=== PATIENT | female | born 1955 | race Caucasian/White ===

== ENCOUNTER 2018-06-29 17:02 | Outpatient (REF) | payer BC, SELFPAY ==
[2018-06-29 21:03] LABS: HCT 44.8 % (36.0-46.0); HGB 15.1 g/dL (12.0-15.5)
[2018-06-29 21:09] LABS: Anion Gap 5.8 mmol/L (3-11); BUN 14 mg/dL (7-18); CO2 30.2 mmol/L (21.0-32.0); CREATININE 0.81 mg/dL (0.55-1.02); Calcium 9.3 mg/dL (8.5-10.1); Chloride 104 mmol/L (98-107); Glucose 91 mg/dL (70-100); Potassium 3.9 mmol/L (3.5-5.1); Sodium 140 mmol/L (136-145)
[2018-06-29 21:55] LABS: Hemoglobin A1C 6.7 % (4.5-6.2)
== END 2018-06-29 17:22 ==
LOC: NCHCN 17:02
PROVIDERS: PCP Family Medicine; Visit Provider Registered Nurse
DX: E11.9 Type 2 diabetes mellitus without complications (principal); D64.9 Anemia, unspecified
CPT/HCPCS: 80048; 83036; 85014; 85018

== ENCOUNTER 2019-03-30 10:04 | Inpatient (IN) | payer OTHER, SELFPAY ==
[2019-03-30] VITALS (37 sets, daily range): BP systolic 84–162; BP diastolic 33–120; PULSE 80–97; RESP 16–28; TEMP 38.3–38.4; O2SAT 84–100
--- NOTE | 2019-03-30 10:44 | ED.GENADUL_ITS ---
Discharge Plan Disposition Patient Disposition: [facility] INPATIENT Condition: Serious Discharge Details Chief Complaint: Fever Clinical Impression: Enteritis, Acute hypokalemia, Hypocalcemia, Acute hyponatremia, Leukopenia Admit Date/Time: 03/30/19 13:49 Admit Provider: Jersey Morin Attending Provider: Jersey Morin Primary Care Provider: SOMMER WYNNE ED Provider: Shiraz Leung Discharge Data Discharge Date/Time-TO BE ENTERED AT DEPARTURE: 03/30/19 15:16 Medical Decision Making 10:45 --64-year-old female with history of rectal cancer, recently completed first course of chemotherapy, currently on radiation therapy, here with generalized weakness, fatigue, recently feverish with intermittent cough and also epigastric abdominal pain and tenderness. Consider metastatic disease versus other acute surgical pathology. Plan to obtain CT of the abdomen pelvis. Given her recent cough and fever, consider pneumonia versus metastatic lesions to her lungs. I will obtain CT of the chest as well. Patient was apparently neutropenic at the [facility] center recently. Plan to repeat labs including CBC. Consider electrolyte abnormalities. --Labs reviewed and hypokalemia noted. Hypocalcemia noted. Hyponatremia noted. Will give potassium 20 meq IV. ECG was reviewed and interpreted by me: Sinus rhythm 83 bpm, normal axis, nondiagnostic. CT is pending. -- CT interpreted by radiology: enteritis. Given fever, leukopenia, and mild elevated lactate, will cover with antibiotic. Initiated Levaquin IV. Spoke with Dr. Morin, discussed ED presentation and course, who will admit. HPI General Mode of arrival: ambulatory . Date/Time Provider Initiated Documentation: 03/30/19 10:18 . Limitations to Documentation: no limitations . Information obtained by: patient and family . HPI Narrative: 64-year-old female with history of rectal cancer, recently completed first course of chemotherapy, currently on radiation therapy, here with chief complaint of weakness. Patient notes increased generalized weakness over the past few days. Weakness is now severe. Nonfocal. No modifiers. She is been going to [facility] center receiving IV fluids over the past couple days without relief. She also notes decreased appetite and decreased oral intake. notes that he thinks she is felt feverish. She also notes some mild intermittent productive cough over the past couple days. She also states that she has upper abdominal discomfort over the past 1 day. Pain is localized to her epigastric and moderate. Related Data Home Medications Medication Instructions Recorded Confirmed acetaminophen [Acetaminophen Extra See Rx Instructions .ROUTE 03/30/19 03/30/19 Strength] .COMPLEX PRN aspirin [Aspirin Childrens] 81 mg PO DAILY 03/30/19 03/30/19 capecitabine 1,300 mg PO BID 03/30/19 03/30/19 docusate sodium 100 mg PO BID 03/30/19 03/30/19 famotidine 20 mg PO DAILY 03/30/19 03/30/19 fluconazole 100 mg PO PRN PRN 03/30/19 03/30/19 hydromorphone See Rx Instructions .ROUTE 03/30/19 03/30/19 .COMPLEX PRN loperamide 2 mg PO 4-6XD PRN 03/30/19 03/30/19 lorazepam See Rx Instructions .ROUTE 03/30/19 03/30/19 .COMPLEX PRN losartan 25 mg PO DAILY 03/30/19 03/30/19 morphine 15 mg PO BID 03/30/19 03/30/19 morphine See Rx Instructions .ROUTE 03/30/19 03/30/19 .COMPLEX PRN nitroglycerin [Nitrostat] See Rx Instructions .ROUTE 03/30/19 03/30/19 .COMPLEX PRN oxybutynin chloride [Ditropan XL] 5 mg PO DAILY 03/30/19 03/30/19 polyethylene glycol 3350 [Miralax] 17 g PO DAILY 03/30/19 03/30/19 ropinirole [Requip XL] See Rx Instructions .ROUTE .COMPLEX 03/30/19 03/30/19 rosuvastatin [Crestor] 40 mg PO DAILY 03/30/19 03/30/19 ticagrelor [Brilinta] 60 mg PO BID 03/30/19 03/30/19 tramadol See Rx Instructions .ROUTE 03/30/19 03/30/19 .COMPLEX PRN Allergies Allergy/AdvReac Type Severity Reaction Status Date / Time Penicillins Allergy Unverified 03/30/19 10:20 General Stated Complaint: Fever SUJATA: 2 Review of Systems Review of Systems ROS Unobtainable: All systems reviewed & are unremarkable except as noted in HPI and below ENT Ears, Nose, Mouth, and Throat: Reports dizziness Cardiovascular Cardiovascular: Denies syncope Gastrointestinal Gastrointestinal: Reports as per HPI Neurologic Neurologic: Reports as per HPI, Reports dizziness and Denies syncope [facility] Medical History Anal cancer (Acute) CAD (coronary artery disease) (Chronic) Dyslipidemia (Acute) Restless leg syndrome (Acute) Exam Const General: cooperative and no acute distress HENMT Head: normocephalic and atraumatic Mouth: mucous membranes dry Throat: posterior oropharynx normal Eyes Conjunctivae: normal conjunctivae Sclera: normal sclerae EOM: EOM intact bilaterally Neck Neck: trachea midline and supple Resp Auscultation: clear to auscultation bilaterally, no rales, no rhonchi and no wheezes Cardio Jugular venous pressure: no JVD Rate: regular rate and not tachycardic Rhythm: regular rhythm GI Palpation: soft, not firm, no guarding, no masses, not rigid and tender in the epigastrum Auscultation: normal bowel sounds Skin General skin exam: no rashes or lesions noted Neuro General: oriented x3, tone normal and other (Asleep, easily arousable, fatigued) Cranial Nerves: CN's II-XI intact bilaterally Speech: speech normal Motor: other (4 out of 5 strength throughout) Sensory Exam: no sensory deficits noted Extrem General: no edema Psych Appearance: grossly normal Course Vital Signs Vital signs: Vital Signs Temperature 38.3 C H 03/30/19 10:15 Pulse 85 03/30/19 10:15 Respiratory Rate 28 H 03/30/19 10:15 Blood Pressure 107/46 L 03/30/19 10:15 Pulse Oximetry 97 03/30/19 10:15 Temperature 38.3 C H 03/30/19 10:15 Temperature Source Skin 03/30/19 10:15 Pulse 85 03/30/19 10:15 Respiratory Rate 28 H 03/30/19 10:15 Respiratory Effort 03/30/19 10:15 Blood Pressure 107/46 L 03/30/19 10:15 Blood Pressure Position Supine 03/30/19 10:15 Pulse Oximetry 97 03/30/19 10:15 Oxygen Delivery Method Room Air 03/30/19 10:15 Oxygen Flow Rate 0 03/30/19 10:15 Pain Level 8 03/30/19 10:15 Lab/Test Results Lab/Test Results: 03/30/19 10:38 Blood Blood Culture - Pending 03/30/19 10:38 Blood Blood Culture - Pending
[2019-03-30] MEDS: Normal Saline 1,000 ML 1000 ML IV (11:00)
[2019-03-30 11:03] LABS: Lactate 1.7 mmol/L (0.6-1.4)
[2019-03-30] MEDS: FAMOTIDINE 20 MG/50 ML BAG 200 MG IVPB (11:05)
[2019-03-30 11:14] LABS: HGB 11.3 g/dL (12.0-15.5); Mean Corp. HGB Concentration 35.3 g/dL (32.0-36.0); Mean Corpuscular Volume 90.7 fL (80-95); Mean Platelet Volume 8.9 fL (8.0-11.0); RBC 3.53 m/cumm (4.00-5.20); RBC Distribution Width 16.5 % (11.7-14.6); White Blood Cell Count 2.48 k/cumm (4.4-10.8)
[2019-03-30 11:25] LABS: ALT 37 U/L (14-59); AST 31 U/L (15-37); Albumin 2.3 g/dL (3.4-5.0); Alkaline Phosphatase 64 U/L (46-116); Anion Gap 10.2 mmol/L (3-11); BUN 10 mg/dL (7-18); Bilirubin, Total 0.7 mg/dL (0.2-1.0); CO2 24.8 mmol/L (21.0-32.0); CREATININE 0.95 mg/dL (0.55-1.02); Calcium 7.1 mg/dL (8.5-10.1); Chloride 92 mmol/L (98-107); Estimated GFR 59.04 (mL/min/1.73m2); Glucose 214 mg/dL (70-100); Lipase 27 U/L (73-393); Sodium 127 mmol/L (136-145); Total Protein 5.4 g/dL (6.4-8.2); Troponin I < 0.05 ng/mL (0.00-0.06)
[2019-03-30] MEDS: Normal Saline Flush 10 ML SYR IVP ×3 (11:30→19:51)
[2019-03-30 11:35] LABS: Platelet Count 98 x1000/uL (130-400)
[2019-03-30 11:36] LABS: Absolute Lymphocyte Count 0.02 k/cumm (1.2-3.4); Absolute Monocyte Count 0.74 k/cumm (0.11-0.7); Absolute Neutrophil Count 1.56 k/cumm (1.2-6.7)
[2019-03-30 11:37] LABS: Diff Comment Manual Differential; RBC Morphology Normal
[2019-03-30] MEDS: Normal Saline 1,000 ML 150 ML IV (11:50)
[2019-03-30] MEDS: Omnipaque 350 MG/ML 100 ML BTL IJ (12:48)
--- NOTE | 2019-03-30 12:52 | DI.CT_ITS ---
EXAM: CT CHEST/ABD/PEL W CLINICAL HISTORY: cough, neutropenia, epigastric abd pain and tender. TECHNIQUE: CT examination of the chest, abdomen and pelvis was performed utilizing biphasic hepatic imaging with intravenous infusion of 100 cc of Omnipaque 350. COMPARISON: [id number] from 01/26/2019 FINDINGS: The lungs are clear. No pleural effusion or pleural-based mass. No mediastinal or hilar adenopathy. N o pulmonary embolic disease or other major vascular abnormality of the chest. Tiny right lobe hepatic lesion at the dome of the liver consistent with cyst, unchanged from prior CT of 01/2019. No new hepatic lesion. No new splenic lesion. Pancreas is unremarkable. Prior cholecyst ectomy noted. No biliary dilatation. Abdominal aorta is of normal diameter. No major vascular abnorm ality seen. Presumed bilateral renal cysts again noted. Adrenals unremarkable in appearance. No sign ificant abdominal wall hernia seen. Previously noted external iliac enlarged lymph node markedly decr eased in size. Mild left inguinal lymph node prominence noted, nonspecific. There is a small quantity of free intraperitoneal fluid. There are multiple loops of small bowel with markedly thickened wall and there is moderate small bowel dilatation. Thickened wall of the rectosig moid also noted. Question slight wall thickening of cecum, the terminal ileum has a thickened wall. Proximal small bowel grossly unremarkable. No focal bony lesion identified in the chest, abdomen or pelvis. IMPRESSION: 1. Interval decrease in size of left external iliac/inguinal adenopathy since 01/26/2019. 2. No evidence of acute process in the thoracic region. 3. Marked focal small and large bowel wall thickening as described; findings would be consistent with enteritis of uncertain etiology, in a patient with a history of recent radiotherapy and chemotherapy , possible causes would include infectious process, radiation enteritis, or enteritis related to chem otherapeutic regimen.
[2019-03-30] MEDS: POTASSIUM CHLORIDE 20 MEQ/100 ML BAG 50 MEQ IVPB (13:24)
[2019-03-30 14:22] LABS: Lactate 1.6 mmol/L (0.6-1.4)
[2019-03-30 14:24] LABS: Troponin I < 0.05 ng/mL (0.00-0.06)
[2019-03-30 14:30] LABS: Sodium 129 mmol/L (136-145)
[2019-03-30] MEDS: Enoxaparin 40 MG/0.4 ML SYR SC (16:33)
[2019-03-30] MEDS: levoFLOXacin 750 MG/150 ML BAG 100 MG IVPB (16:34)
[2019-03-30] MEDS: Normal Saline 1,000 ML 75 ML IV (16:34)
[2019-03-30] MEDS: Potassium Chloride 20 MEQ TABCR 40 MEQ PO (16:39)
--- NOTE | 2019-03-30 18:12 | HPE_ITS ---
Date of service: 03/30/19 Time of Service: 18:12 Assessment and Plan Assessment and plan (1) Enteritis: Status: Acute Assessment and plan: Evidence of a marketed focal small and large bowel wall thickening, specifically noted to have multiple loops of small bowel that are markedly thickened with moderate dilatation -also with noted thickening of the rectosigmoid wall, potential slight wall thickening of the cecum, as well as terminal ileum. Patient has what appears to be an enteritis, with a etiology potentially on the basis of either infectious, radiation, or chemotherapy induced. Mrs. Jacquie Yeager also has evidence of fevers on presentation, making infectious etiology a real possibility. ?Check stool studies, including fecal pathogens, C. difficile screen, and fecal leukocytes. ?Continue supportive care with IV fluids, with careful monitoring of sodium and electrolytes as below. ?Given concurrent fevers may benefit from antibiotic therapy. Penicillin allergy noted?will initiate levofloxacin and metronidazole. Potential interaction between Flagyl and capecitabine noted, but with patient's chemotherapeutic agents currently on hold. ?Monitor symptoms carefully, with low threshold for specialty support such as surgery consult. Repeat a.m. lactate. (2) Hyponatremia: Status: Acute Assessment and plan: Very likely hypovolemic hyponatremia, currently improving with IV fluids. Will need to ensure that she does not rise in her sodium levels rapidly, and repeat sodium appears to be very gradual and appropriate increase. We will continue normal saline at a relatively low rate, and repeat a sodium level within a couple of hours to ensure appropriate rise. (3) Anal cancer: Status: Acute Assessment and plan: Currently following with [facility] oncology, Dr. Espino. On chemotherapy with mitomycin and capecitabine, which is currently on hold. Patient has had issues in the past apparently with low white blood counts, but is currently not neutropenic. Will hold fluconazole as patient is not neutropenic. She is also undergoing XRT which is approaching its final courses. She is due for her next dose this coming Tuesday, and as per Dr. Espino if she remains hospitalized would merit transfer as an inpatient to [facility] so that her care and radiation therapy are not delayed. (4) CAD (coronary artery disease): Status: Chronic Assessment and plan: Details of history are unknown, but per review of [facility] records appears to involve a STEMI in the past. For now continue patient's home regimen of daily aspirin and high potency statin therapy. Also on as needed nitroglycerin. Patient is also on daily ARB, but given relative hypotension and evidence of dehydration losartan will be held. (5) Dyslipidemia: Status: Acute Assessment and plan: Continue statin therapy. (6) Restless leg syndrome: Status: Acute Assessment and plan: Continue home regimen of ropinirole. (7) DVT prophylaxis: Status: Acute Assessment and plan: SC Lovenox. (8) Advanced directives, counseling/discussion: Status: Acute Assessment and plan: Full code. History of Present Illness History of Present Illness Chief Complaint: Abdominal pain Narrative: 64-year-old woman with past medical history significant for anal CA on chemo and XRT, being admitted from [facility] emergency department on 03/30 with a diagnosis of enteritis. Mrs. Jacquie Rodriguez has a past medical history significant for anal CA on chemotherapy with mitomycin and Capecitabin (currently on hold) and radiation therapy that is currently concluding. Her other history also includes CAD with a prior history of STEMI per review of [facility] records, RLS, and dyslipidemia. The patient has been feeling unwell recently, presented to her oncologist's off ice, Dr. Espino, with reported weakness, fatigue, and abdominal pain. She was sent to the ED for further evaluation and treatment. Work-up in the ED was significant for leukopenia without neutropenia, mild anemia and thrombocytopenia, hyponatremia with a sodium of 127, which is a new finding for the patient, along with hypokalemia and hypochloremia. Her lactate was minimally elevated at 1.7, with normal LFTs, lipase, troponin, and magnesium. In addition to her low white blood count she seems to have 27 bands on differential. Though her calcium is low, it corrects to low normal considering her low albumin. Given her abdominal pain a CT of the chest, abdomen, and pelvis was obtained that showed an interval decrease in size of inguinal adenopathy, and a marketed focal small and large bowel wall thickening consistent with an enteritis of uncertain etiology. She was also noted to be fe brile, and mildly hypotensive but non-tachycardic. She was referred for admission for further evaluation and treatment. Review of Systems Review of Systems ROS Unobtainable: All systems reviewed & are unremarkable except as noted in HPI and below PFSH Medical History Anal cancer (Acute) CAD (coronary artery disease) (Chronic) Dyslipidemia (Acute) Restless leg syndrome (Acute) Meds Home Medications and Allergies Home Medications Medication Instructions Recorded Confirmed Type acetaminophen [Acetaminophen Extra See Rx Instructions .ROUTE 03/30/19 03/30/19 History Strength] .COMPLEX PRN aspirin [Aspirin Childrens] 81 mg PO DAILY 03/30/19 03/30/19 History capecitabine 1,300 mg PO BID 03/30/19 03/30/19 History docusate sodium 100 mg PO BID 03/30/19 03/30/19 History famotidine 20 mg PO DAILY 03/30/19 03/30/19 History fluconazole 100 mg PO PRN PRN 03/30/19 03/30/19 History hydromorphone See Rx Instructions .ROUTE 03/30/19 03/30/19 History .COMPLEX PRN loperamide 2 mg PO 4-6XD PRN 03/30/19 03/30/19 History lorazepam See Rx Instructions .ROUTE 03/30/19 03/30/19 History .COMPLEX PRN losartan 25 mg PO DAILY 03/30/19 03/30/19 History morphine 15 mg PO BID 03/30/19 03/30/19 History morphine See Rx Instructions .ROUTE 03/30/19 03/30/19 History .COMPLEX PRN nitroglycerin [Nitrostat] See Rx Instructions .ROUTE 03/30/19 03/30/19 History .COMPLEX PRN oxybutynin chloride [Ditropan XL] 5 mg PO DAILY 03/30/19 03/30/19 History polyethylene glycol 3350 [Miralax] 17 g PO DAILY 03/30/19 03/30/19 History ropinirole [Requip XL] See Rx Instructions .ROUTE .COMPLEX 03/30/19 03/30/19 History rosuvastatin [Crestor] 40 mg PO DAILY 03/30/19 03/30/19 History ticagrelor [Brilinta] 60 mg PO BID 03/30/19 03/30/19 History tramadol See Rx Instructions .ROUTE 03/30/19 03/30/19 History .COMPLEX PRN Allergies Allergy/AdvReac Type Severity Reaction Status Date / Time Penicillins Allergy Unverified 03/30/19 10:20 Exam Narrative Exam Narrative: General: Patient appears uncomfortable and ill, but not toxic. Appears tired and somnolent but easily arousable, answers questions appropriately, and oriented x3 when answering questions. Neck: Supple CV: Regular, nontachycardic, S1S2, No rubs, murmurs, or gallops. Pulmonary: Clear to auscultation bilaterally, no crackles, wheezing, or rhonchi on limited anterior and lateral exam Abdomen: + Bowel Sounds, soft, nondistended, significant diffuse tenderness without rebound. Does not appear to be an acute abdomen at time of admission. Vascular: No lower extremity edema Psych: Normal mood and affect. Results Imaging Abdomen CT scan report/results: report reviewed CT scan - chest: report reviewed CT scan - pelvis: report reviewed Labs Result diagrams: 03/30/19 10:50 03/30/19 14:16 Labs: Laboratory Results - last 24 hr 03/30/19 03/30/19 03/30/19 10:50 10:50 10:50 WBC 2.48 L RBC 3.53 L Hgb 11.3 L Hct 32.0 L MCV 90.7 MCH 32.0 MCHC 35.3 RDW 16.5 H Plt Count 98 L MPV 8.9 Immature Gran % See Differential Neutrophils % 36.0 Band Neutrophils % 27.0 Lymphocytes % 1.0 Monocytes % 30.0 Eosinophils % 0.0 Basophils % 0.0 Metamyelocytes % 6.0 Absolute Neutrophils 1.56 Absolute Lymphocytes 0.02 L Absolute Monocytes 0.74 H Absolute Eosinophils 0.00 Absolute Basophils 0.00 Differential Comment Manual differential RBC Morphology Normal Sodium 127 L Potassium 3.0 L Chloride 92 L Carbon Dioxide 24.8 Anion Gap 10.2 BUN 10 Creatinine 0.95 Estimated GFR/1.73 m2 59.04 Glucose 214 H Lactate 1.7 H Calcium 7.1 L Magnesium 2.0 Total Bilirubin 0.7 AST 31 ALT 37 Alkaline Phosphatase 64 Troponin I < 0.05 Total Protein 5.4 L Albumin 2.3 L Lipase 27 L 03/30/19 03/30/19 03/30/19 13:40 14:16 14:16 WBC RBC Hgb Hct MCV MCH MCHC RDW Plt Count MPV Immature Gran % Neutrophils % Band Neutrophils % Lymphocytes % Monocytes % Eosinophils % Basophils % Metamyelocytes % Absolute Neutrophils Absolute Lymphocytes Absolute Monocytes Absolute Eosinophils Absolute Basophils Differential Comment RBC Morphology Sodium 129 L Potassium Chloride Carbon Dioxide Anion Gap BUN Creatinine Estimated GFR/1.73 m2 Glucose Lactate 1.6 H Calcium Magnesium Total Bilirubin AST ALT Alkaline Phosphatase Troponin I < 0.05 Total Protein Albumin Lipase Last Vital Signs Temp 38.4 C H 03/30/19 15:27 Pulse 82 03/30/19 15:27 Resp 21 03/30/19 15:27 BP 107/58 L 03/30/19 15:27 Pulse Ox 98 03/30/19 15:27
[2019-03-30] MEDS: Pantoprazole 40 MG VIAL IVP (19:26)
[2019-03-30] MEDS: metroNIDAZOLE 500 MG/100 ML BAG 100 MG IVPB (19:28)
[2019-03-30] MEDS: Docusate Sodium 100 MG CAP PO (19:28)
[2019-03-30] MEDS: Rosuvastatin 10 MG TAB 40 MG PO (19:48)
[2019-03-30] MEDS: HYDROmorphone 2 MG/ML VIAL 1 MG IVP (19:50)
[2019-03-30 20:28] LABS: Sodium 127 mmol/L (136-145)
[2019-03-30] MEDS: rOPINIRole 0.5 MG TAB 2 MG PO (21:53)
[2019-03-31] VITALS (8 sets, daily range): BP systolic 82–104; BP diastolic 36–58; PULSE 80–84; RESP 16–18; TEMP 37.4–38.7; O2SAT 95–98
[2019-03-31] MEDS: metroNIDAZOLE 500 MG/100 ML BAG 100 MG IVPB ×3 (03:21→19:30)
[2019-03-31] MEDS: Normal Saline 1,000 ML 75 ML IV (07:03)
[2019-03-31 07:34] LABS: Abs Immature Grans 0.02 k/cumm (0.0-0.09); Absolute Basophil Count 0.01 k/cumm (0.0-0.2); Absolute Lymphocyte Count 0.17 k/cumm (1.2-3.4); Absolute Monocyte Count 0.85 k/cumm (0.11-0.7); Absolute Neutrophil Count 2.07 k/cumm (1.2-6.7); Basophils % 0.3; HCT 31.1 % (36.0-46.0); HGB 10.9 g/dL (12.0-15.5); Immature Grans % 0.6; Lymphocytes % 5.4; Mean Corpuscular Hemoglobin 32.2 pg (27.0-33.0); Mean Corpuscular Volume 91.7 fL (80-95); Monocytes % 27.2; Neutrophils % 66.5; RBC 3.39 m/cumm (4.00-5.20); White Blood Cell Count 3.12 k/cumm (4.4-10.8)
[2019-03-31 08:22] LABS: BUN 7 mg/dL (7-18); CREATININE 0.71 mg/dL (0.55-1.02); Chloride 99 mmol/L (98-107); Glucose 152 mg/dL (70-100); Magnesium 1.9 mg/dL (1.8-2.4); Potassium 3.3 mmol/L (3.5-5.1); Sodium 130 mmol/L (136-145)
[2019-03-31 08:26] LABS: Diff Comment Diff Reviewed
[2019-03-31 08:27] LABS: Platelet Count 69 x1000/uL (130-400)
[2019-03-31] MEDS: Oxybutynin-CR 5 MG TABCR PO (08:36)
[2019-03-31] MEDS: Polyethylene Glycol 3350 17 GM PACKET PO (08:36)
[2019-03-31] MEDS: rOPINIRole 0.5 MG TAB 1 MG PO (08:36)
[2019-03-31] MEDS: Acetaminophen 325 MG TAB PO ×2 (08:37→14:03)
[2019-03-31] MEDS: Docusate Sodium 100 MG CAP PO ×2 (08:37→19:33)
[2019-03-31] MEDS: Famotidine 20 MG TAB PO (08:37)
[2019-03-31] MEDS: Aspirin 81 MG CHEW PO (08:37)
--- NOTE | 2019-03-31 09:49 | PDOC.CMIN ---
Care Management Initial Assess REASON FOR HOSPITALIZATION:: Enteritis, Hyponatremia PAST MEDICAL HISTORY/PAST SURGICAL HISTORY:: Anal cancer, CAD, Dyslipidemia, Restless leg syndrome PREVIOUS FUNCTIONAL STATUS/SOCIAL/FAMILY SUPPORTS:: Esequiel resides with her , Naif in [place], [place]. ADVANCE DIRECTIVES:: None on file at [facility]. Has patient been provided with information about the portal?: Yes Did the patient sign up for the portal?: No CODE STATUS:: Full Code INSURANCE COVERAGE / FINANCIAL ISSUES:: [facility] CURRENT HOME/COMMUNITY SERVICES/EQUIPMENT:: [facility]: current chemo and radiation treatments PRIMARY CARE PHYSICIAN:: Yodit Reid POTENTIAL DISCHARGE NEEDS:: Wound consult, surgical consult, possible palliative care consult, evaluation for discharge planning considerations. PATIENT/FAMILY EDUCATION NEEDS:: Review of discharge instructions, discuss Ask Me Three. ANTICIPATED BARRIERS TO DISCHARGE:: None identified. TRANSPORTATION:: Via private vehicle with her , Naif. PLAN:: Esequiel will have a wound consult for possible surgical consult for assumed radiation felder. She will return home when medically ready, resume treatments through [facility], and follow up with her PCP. She will transport via private vehicle with her , Naif.
--- NOTE | 2019-03-31 10:57 | PHARADMIT ---
Admission Pharmacy Clinical Review Enteritis, hyponatremia Code Status Full Code Current Weight 62.9 kg Renally Cleared and Narrow Therapeutic Index Meds CrCl~60ml/min (Levaquin) QTc Value / Action Taken QTC 442 BP Control, Fever BP 98/40 Temp 38.2 Electrolytes reviewed Na++ 130 K+ 3.3 Mag 1.9 (NS@75ml/hr, K+ 40meq po x1) DVT Prophylaxis Lovenox 40mg.....hold due to low PLT? Opiate Usage / Scheduled Bowel Regimen Ordered yes/yes Plt/SCr for Heparin / Enoxaparin Plt 69 SCr 0.71 INR for Warfarin H/H stable, WBC/Bands H/H 10.9/31.1 WBC 3.12 Antibiotic appropriateness Levaquin 750mg IV Q24h, Flagyl IV (doses ok) Lungs clear on CT scan, elevated lactate, fever...Anbx started in ED Cultures and Sensitivities C.Diff negative Surgical ABX d/c within 24 hr DM control / Insulin Dosing Heart Failure (Check EF%) (ZAHRAA's, B-Block, Diuretics) IV to PO Switch Home Meds Reviewed Pt's own Brilinta....coordinator aware we need to obtain Home Meds Not Ordered Losartan-BP soft, Xeloda (Cancer med)-drug interaction w/Flagyl, held intentionally Comments Active treatment for Anal cancer, ?radiation felder, wound consult
[2019-03-31] MEDS: Potassium Chloride 20 MEQ TABCR 40 MEQ PO (11:02)
--- NOTE | 2019-03-31 11:20 | W.SURGCON ---
Date of service: 03/31/19 Time of Service: 11:20 Assessment and Plan Assessment and plan (1) Acute radiation dermatitis: Status: Acute Assessment and plan: A\\ Acute radiation dermatitis P\\ Recommend washing with luke warm water and mild soap 2 times per day Keep area clean and dry May try either mometasone furoate 0.1% or hyrdocortisone 1% cream 1-2 x daily Pain control with oral and lidocaine oitment History of Present Illness History of Present Illness Chief Complaint: Perianal wound Narrative: I was asked to se this pleasant 64-year-old woman with past medical history significant for anal CA on chemo and XRT, being admitted from [facility] emergency department on 03/30 with a diagnosis of enteritis. Mrs. Jacquie Yeager has a past medical history significant for anal CA on chemotherapy with mitomycin and Capecitabin (currently on hold) and radiation therapy. She tells me she has 2 more radiation treatments scheduled. The next treatment in Tuesday04/03/19. Her other history also includes CAD with a prior history of STEMI per review of [facility] records, RLS, and dyslipidemia. The patient has been feeling unwell recently, presented to her oncologist's office, Dr. Espino, with reported weakness, fatigue, and abdominal pain. She was sent to the ED for further evaluation and treatment. Work-up in the ED was significant for leukopenia without neutropenia, mild anemia and thrombocytopenia, hyponatremia with a sodium of 127, which is a new finding for the patient, along with hypokalemia and hypochloremia. Her lactate was minimally elevated at 1.7, with normal LFTs, lipase, troponin, and magnesium. In addition to her low white blood count she seems to have 27 bands on differential. Though her calcium is low, it corrects to low normal considering her low albumin. Given her abdominal pain a CT of the chest, abdomen, and pelvis was obtained that showed an interval decrease in size of inguinal adenopathy, and a marketed focal small and large bowel wall thickening consistent with an enteritis of uncertain etiology. She was also noted to be febrile, and mildly hypotensive but non-tachycardic. She was referred for admission for further evaluation and treatment. I was asked to see the patient today by Dr. Vu to assess some wang-anal wounds. Patient continues to be febrile. She is tolerating clear liquids. She had a small hard BM this morning. Mrs. Dhillon tells me that she was given a slurry to place on her wang-anal region. She is unsure of what is in the slurry. She does think there is some Lidocaine in it. Consults Consult date: 03/31/19 Requesting physician: Belle Vu Review of Systems Constitutional Constitutional: Reports fatigue, Reports fever(s), Reports malaise, Reports poor appetite and Reports weakness Eyes Eyes: Denies change in vision ENT Ears, Nose, Mouth, and Throat: Denies dysphagia Cardiovascular Cardiovascular: Denies chest pain, Denies chest pain at rest, Denies irregular heart rhythm, Denies palpitations and Denies dyspnea Respiratory Respiratory: Denies cough and Denies dyspnea Gastrointestinal Gastrointestinal: Reports as per HPI and Denies dysphagia Genitourinary Genitourinary: Denies hematuria and Denies dysuria Musculoskeletal Musculoskeletal: Reports system reviewed and no additional complaints, except as docu Neurologic Neurologic: Reports weakness Endocrine Endocrine: Reports fatigue and Denies palpitations [facility] Medical History Anal cancer (Acute) CAD (coronary artery disease) (Chronic) Dyslipidemia (Acute) Restless leg syndrome (Acute) Social History (Updated 03/31/19 @ 11:50 by Marla Rogers MD) Smoking/Tobacco Use Status: Never Alcohol Intake: current Alcohol Intake frequency: a few times a week Drug use: Never Exam Resp Effort & Inspection: normal respiratory effort Cardio Rate: regular rate Rhythm: regular rhythm GI Palpation: soft and tender Other: Perianal region with Grade 3.5 Radiation dermatitis with moist sloughing of the skin. No abscess appreciated. Results Last Vital Signs Temp 100.8 F H 03/31/19 09:25 Pulse 84 03/31/19 09:25 Resp 18 03/31/19 09:25 BP 98/40 L 03/31/19 09:27 Pulse Ox 98 03/31/19 09:25 Labs Result diagrams: 03/31/19 07:10 03/31/19 07:55 Labs: Laboratory Results - last 24 hr 03/30/19 03/30/19 03/30/19 10:50 10:50 13:40 WBC 2.48 L RBC 3.53 L Hgb 11.3 L Hct 32.0 L MCV 90.7 MCH 32.0 MCHC 35.3 RDW 16.5 H Plt Count 98 L MPV 8.9 Immature Gran % See Differential Neutrophils % 36.0 Band Neutrophils % 27.0 Lymphocytes % 1.0 Monocytes % 30.0 Eosinophils % 0.0 Basophils % 0.0 Metamyelocytes % 6.0 Absolute Neutrophils 1.56 Absolute Lymphocytes 0.02 L Absolute Monocytes 0.74 H Absolute Eosinophils 0.00 Absolute Basophils 0.00 Differential Comment Manual differential RBC Morphology Normal Sodium 127 L Potassium 3.0 L Chloride 92 L Carbon Dioxide 24.8 Anion Gap 10.2 BUN 10 Creatinine 0.95 Estimated GFR/1.73 m2 59.04 Glucose 214 H Lactate Calcium 7.1 L Magnesium 2.0 Total Bilirubin 0.7 AST 31 ALT 37 Alkaline Phosphatase 64 Troponin I < 0.05 < 0.05 Total Protein 5.4 L Albumin 2.3 L Lipase 27 L 03/30/19 03/30/19 03/30/19 14:16 14:16 20:10 WBC RBC Hgb Hct MCV MCH MCHC RDW Plt Count MPV Immature Gran % Neutrophils % Band Neutrophils % Lymphocytes % Monocytes % Eosinophils % Basophils % Metamyelocytes % Absolute Neutrophils Absolute Lymphocytes Absolute Monocytes Absolute Eosinophils Absolute Basophils Differential Comment RBC Morphology Sodium 129 L 127 L Potassium Chloride Carbon Dioxide Anion Gap BUN Creatinine Estimated GFR/1.73 m2 Glucose Lactate 1.6 H Calcium Magnesium Total Bilirubin AST ALT Alkaline Phosphatase Troponin I Total Protein Albumin Lipase 03/31/19 03/31/19 03/31/19 07:10 07:55 07:55 WBC 3.12 L RBC 3.39 L Hgb 10.9 L Hct 31.1 L MCV 91.7 MCH 32.2 MCHC 35.0 RDW 17.0 H Plt Count 69 L MPV 9.0 Immature Gran % 0.6 Neutrophils % 66.5 Band Neutrophils % Lymphocytes % 5.4 Monocytes % 27.2 Eosinophils % 0.0 Basophils % 0.3 Metamyelocytes % Absolute Neutrophils 2.07 Absolute Lymphocytes 0.17 L Absolute Monocytes 0.85 H Absolute Eosinophils 0.00 Absolute Basophils 0.01 Differential Comment Diff reviewed RBC Morphology Sodium 130 L Potassium 3.3 L Chloride 99 Carbon Dioxide 24.0 Anion Gap 7.0 BUN 7 Creatinine 0.71 Estimated GFR/1.73 m2 >= 60.00 Glucose 152 H Lactate 1.0 Calcium 7.0 L Magnesium 1.9 Total Bilirubin AST ALT Alkaline Phosphatase Troponin I Total Protein Albumin Lipase
[2019-03-31] MEDS: levoFLOXacin 750 MG/150 ML BAG 100 MG IVPB (14:04)
--- NOTE | 2019-03-31 14:35 | NUR.NOTE ---
Nursing Note: Applied ordered creams to the rectal area. noted more skin has sloughed since this morning. area was cleansed prior to the application, will continue to monitor this, and continue to encourage patient to offload Patient did state the cream brought relief. When I went to reassess the dose of MSIR for pain. She stated that the abd pain had improved. But now she was c/o a headache 6-10. Tylenol was given for the pain. will continue to monitor.
--- NOTE | 2019-03-31 15:33 | PGE_ITS ---
Date of Service Date of service: 03/31/19 Time of Service: 15:33 Assessment and Plan Assessment and plan (1) Enteritis: Status: Acute Assessment and plan: With a fever. Abdominal pain is a little bit better, per patient, but I am concerned with her physical exam, specifically with how tender her abdomen is. Check a stat lactate (normal this am) and an acute abdominal series. Continue empiric abx. Enteritis due to chemo is also possible. (2) Hyponatremia: Status: Acute Assessment and plan: Resolved with normal saline. Continue IVF. (3) Anal cancer: Status: Acute Assessment and plan: Currently following with [facility] oncology. Has a radiation burn which is very impressive. No surgical intervention is indicated, per general surgery. I will investigate which slurry the patient was using at [facility], and we will order it/its components here. (4) CAD (coronary artery disease): Status: Chronic Assessment and plan: H/o STEMI at [facility]. Continue asa/statin/prn nitroglycerin. Continue to hold losartan. (5) Dyslipidemia: Status: Acute Assessment and plan: Continue statin therapy. (6) Restless leg syndrome: Status: Acute Assessment and plan: Continue home regimen of ropinirole. (7) DVT prophylaxis: Status: Acute Assessment and plan: Hold lovenox due to thrombocytopenia today. (8) Advanced directives, counseling/discussion: Status: Acute Assessment and plan: Full code. Consider pallative care consult. Subjective Subjective Patient reports: no new complaints Interval history since last seen: Ms Yeager states that she feels winded/tired, but denies dizziness, chest pain, shortness of breath. She reports abdominal pain and pain in her perianal region. Exam Narrative Exam Narrative: General: Very pleasant, tired appearing middle-aged female, A&Ox3, shivering and covering herself with blankets HEENT: EOMI, dry MM Heart: RRR, no m/r/g Lungs: CTAB GI: abdomen is soft, mildly distended, exquisitely tender to palpation Extremities: no e/c/c BLE's Objective Objective Clinical Data: Abnormal lab results 03/30/19 03/31/19 03/31/19 Range/Units 20:10 07:10 07:55 WBC 3.12 L (4.4-10.8) k/cumm RBC 3.39 L (4.00-5.20) m/cumm Hgb 10.9 L (12.0-15.5) g/dL Hct 31.1 L (36.0-46.0) % RDW 17.0 H (11.7-14.6) % Plt Count 69 L (130-400) x1000/uL Absolute Lymphocytes 0.17 L (1.2-3.4) k/cumm Absolute Monocytes 0.85 H (0.11-0.7) k/cumm Sodium 127 L 130 L (136-145) mmol/L Potassium 3.3 L (3.5-5.1) mmol/L Glucose 152 H (70-100) mg/dL Calcium 7.0 L (8.5-10.1) mg/dL Vital Signs Temperature 37.4 C 03/31/19 11:50 Temperature Source Tympanic 03/31/19 09:25 Pulse 82 03/31/19 11:50 Pulse Rhythm Regular 03/31/19 10:27 Pulse 82 03/30/19 12:20 Respiratory Rate 18 03/31/19 09:25 Respiratory Effort Non-Labored 03/31/19 10:27 Respiratory Depth Normal 03/31/19 10:27 Respiratory Pattern Normal 03/31/19 10:27 Blood Pressure 98/58 L 03/31/19 11:50 Blood Pressure Mean 56 03/30/19 14:30 Blood Pressure Position Supine 03/30/19 10:15 Pulse Oximetry 98 03/31/19 09:25 Oxygen Delivery Method Room Air 03/31/19 09:25 Oxygen Flow Rate 0 03/31/19 09:25 Pain Level 6 03/31/19 14:03 Comment 03/31/19 09:27 Intake & Output 03/30/19 03/31/19 03/31/19 23:59 11:59 23:59 Intake Total 450 / 1550.5 1450.5 / 1900.5 450 / 1900.5 Output Total 1100 / 1100 750 / 1650 900 / 1650 Balance -650 / 450.5 700.5 / 250.5 -450 / 250.5 Weight 62.9 g 62.9 kg Intake: IV 200 / 1300.5 1150.5 / 1150.5 Oral 250 / 250 300 / 750 450 / 750 Output: Urine 1100 / 1100 750 / 1650 900 / 1650 Other: Urine Color Light Lindsey Dark Lindsey Brown Urine Appearance Clear Clear Clear Urine Odor Normal None None Comment Dark yellow urine. Stool Size Small Stool Characteristics Formed Hard Voiding Methods Toilet Toilet Toilet Laboratory Results WBC 3.12 k/cumm (4.4-10.8) L 03/31/19 07:10 RBC 3.39 m/cumm (4.00-5.20) L 03/31/19 07:10 Hgb 10.9 g/dL (12.0-15.5) L 03/31/19 07:10 Hct 31.1 % (36.0-46.0) L 03/31/19 07:10 MCV 91.7 fL (80-95) 03/31/19 07:10 MCH 32.2 pg (27.0-33.0) 03/31/19 07:10 MCHC 35.0 g/dL (32.0-36.0) 03/31/19 07:10 RDW 17.0 % (11.7-14.6) H 03/31/19 07:10 Plt Count 69 x1000/uL (130-400) L 03/31/19 07:10 MPV 9.0 fL (8.0-11.0) 03/31/19 07:10 Immature Gran % 0.6 03/31/19 07:10 Neutrophils % 66.5 03/31/19 07:10 Band Neutrophils % 27.0 % 03/30/19 10:50 Lymphocytes % 5.4 03/31/19 07:10 Monocytes % 27.2 03/31/19 07:10 Eosinophils % 0.0 03/31/19 07:10 Basophils % 0.3 03/31/19 07:10 Metamyelocytes % 6.0 % 03/30/19 10:50 Absolute Neutrophils 2.07 k/cumm (1.2-6.7) 03/31/19 07:10 Absolute Lymphocytes 0.17 k/cumm (1.2-3.4) L 03/31/19 07:10 Absolute Monocytes 0.85 k/cumm (0.11-0.7) H 03/31/19 07:10 Absolute Eosinophils 0.00 k/cumm (0.0-0.7) 03/31/19 07:10 Absolute Basophils 0.01 k/cumm (0.0-0.2) 03/31/19 07:10 Differential Comment Diff reviewed 03/31/19 07:10 RBC Morphology Normal 03/30/19 10:50 Sodium 130 mmol/L (136-145) L 03/31/19 07:55 Potassium 3.3 mmol/L (3.5-5.1) L 03/31/19 07:55 Chloride 99 mmol/L (98-107) 03/31/19 07:55 Carbon Dioxide 24.0 mmol/L (21.0-32.0) 03/31/19 07:55 Anion Gap 7.0 mmol/L (3-11) 03/31/19 07:55 BUN 7 mg/dL (7-18) 03/31/19 07:55 Creatinine 0.71 mg/dL (0.55-1.02) 03/31/19 07:55 Estimated GFR/1.73 m2 >= 60.00 (mL/min/1.73m2) 03/31/19 07:55 Glucose 152 mg/dL (70-100) H 03/31/19 07:55 Lactate 1.0 mmol/L (0.6-1.4) 03/31/19 07:55 Calcium 7.0 mg/dL (8.5-10.1) L 03/31/19 07:55 Magnesium 1.9 mg/dL (1.8-2.4) 03/31/19 07:55 Total Bilirubin 0.7 mg/dL (0.2-1.0) 03/30/19 10:50 AST 31 U/L (15-37) 03/30/19 10:50 ALT 37 U/L (14-59) 03/30/19 10:50 Alkaline Phosphatase 64 U/L (46-116) 03/30/19 10:50 Troponin I < 0.05 ng/mL (0.00-0.06) 03/30/19 13:40 Total Protein 5.4 g/dL (6.4-8.2) L 03/30/19 10:50 Albumin 2.3 g/dL (3.4-5.0) L 03/30/19 10:50 Lipase 27 U/L (73-393) L 03/30/19 10:50
[2019-03-31] MEDS: HYDROmorphone 2 MG/ML VIAL 1 MG IVP (15:34)
[2019-03-31 15:57] LABS: Lactate 1.2 mmol/L (0.6-1.4)
--- NOTE | 2019-03-31 16:46 | DI.RAD_ITS ---
EXAM: XR ABDOMEN FLAT UPRIGHT INDICATION: worsening abdominal pain. COMPARISON: No exams were available for comparison TECHNIQUE: 2D digital imaging was performed. FINDINGS: Two views were obtained. There is moderately dilated small bowel noted in the mid abdomen. Moderate quantity of fecal material noted colon. No gross free intraperitoneal air seen. No gross organomeg hilario. IMPRESSION: Nonspecific mild small bowel dilatation, localized in mid abdomen. Ileus likely, early obstruction excluded. Appropriate follow-up studies requested.
[2019-03-31] MEDS: Silver sulfaDIAZINE 1% 25 GM TUBE TP ×2 (17:09→19:37)
--- NOTE | 2019-03-31 17:19 | DI.VRAD_ITS ---
PROCEDURE INFORMATION: Exam: XR Abdomen, 2 Views Exam date and time: 03/31/2019 4:41 PM Clinical history: 64 years old, female; Abdominal pain TECHNIQUE: Imaging protocol: XR of the abdomen. Frontal supine and upright views of the abdomen. Views: 2 Views. COMPARISON: CT CHEST/ABD/PEL W 03/30/2019 12:46 PM FINDINGS: Gastrointestinal tract: A few mildly dilated small bowel loops, with air fluid levels on the upright view. Intraperitoneal space: No free air. Organs: Post cholecystectomy clips. Bones/joints: Scattered degenerative disease of the spine. IMPRESSION: A few mildly dilated small bowel loops, with air fluid levels on the upright view. Therefore, cannot exclude an obstructive process. Dictated and Authenticated by: Caleb Kat MD. Ordering:SAUL Odonnell MD
--- NOTE | 2019-03-31 17:43 | NUR.NOTE ---
Nursing Note: questioned order about the application of the four topical ointments to the patients perianal area. It was ordered as a 1-1-1-1- proportion. dr stated to apply a thin layer of each that the pharmacist would not be in to mix the lotions tonight ./ Area that was previously black and dry has sloughed off and is red moist and very painful. Patient also stated that she was burping and felt nauseous after dinner. with that information and the rsult of the xray, patient is NPO until morning
[2019-03-31] MEDS: Pantoprazole 40 MG VIAL IVP (19:30)
[2019-03-31] MEDS: Normal Saline Flush 10 ML SYR IVP (19:30)
[2019-03-31] MEDS: Rosuvastatin 10 MG TAB 40 MG PO (19:31)
[2019-03-31 21:28] LABS: Bilirubin Negative (Negative); Blood Large (Negative); Clarity Sl Cloudy (Clear); Glucose Negative (Negative); Ketones Negative (Negative); Leukocyte Esterase Negative (Negative); Nitrite Negative (Negative); Specific Gravity 1.025 (1.005-1.025); Urobilinogen 0.2 EU/dL (Up TO 0.2)
[2019-03-31 21:46] LABS: C & S Indicated? C&S Done As Ordered
[2019-03-31 22:02] LABS: Bacteria Moderate HPF (Negative); Casts 3-5 Fine Granular LPF (Negative); Crystals Negative HPF (Negative); Epithelial Cells Negative HPF (Negative); Mucus Negative (Negative); RBC >50 (0-2)
[2019-03-31] MEDS: rOPINIRole 0.5 MG TAB 2 MG PO (22:07)
[2019-04-01] MEDS: Normal Saline 1,000 ML 75 ML IV ×2 (00:23→19:43)
[2019-04-01 03:15] VITALS: BP 96/42; PULSE 78; RESP 18; TEMP 37.3; O2SAT 96
[2019-04-01] MEDS: metroNIDAZOLE 500 MG/100 ML BAG 100 MG IVPB ×3 (04:00→19:43)
[2019-04-01 07:05] LABS: Abs Immature Grans 0.06 k/cumm (0.0-0.09); HCT 26.8 % (36.0-46.0); HGB 9.3 g/dL (12.0-15.5); Mean Corp. HGB Concentration 34.7 g/dL (32.0-36.0); Mean Corpuscular Hemoglobin 31.7 pg (27.0-33.0); Mean Corpuscular Volume 91.5 fL (80-95); Mean Platelet Volume 9.1 fL (8.0-11.0); RBC 2.93 m/cumm (4.00-5.20); White Blood Cell Count 5.87 k/cumm (4.4-10.8)
[2019-04-01 07:23] LABS: Anion Gap 7.1 mmol/L (3-11); BUN 5 mg/dL (7-18); CO2 24.9 mmol/L (21.0-32.0); CREATININE 0.68 mg/dL (0.55-1.02); Calcium 7.1 mg/dL (8.5-10.1); Chloride 103 mmol/L (98-107); Glucose 93 mg/dL (70-100); Magnesium 1.9 mg/dL (1.8-2.4); Potassium 3.5 mmol/L (3.5-5.1); Sodium 135 mmol/L (136-145)
[2019-04-01 07:26] VITALS: BP 107/67; PULSE 82; RESP 17; TEMP 37; O2SAT 99
[2019-04-01] MEDS: Famotidine 20 MG TAB PO (07:45)
[2019-04-01] MEDS: Oxybutynin-CR 5 MG TABCR PO (07:45)
[2019-04-01] MEDS: Polyethylene Glycol 3350 17 GM PACKET PO (07:45)
[2019-04-01] MEDS: rOPINIRole 0.5 MG TAB 1 MG PO (07:45)
[2019-04-01] MEDS: Aspirin 81 MG CHEW PO (07:45)
[2019-04-01] MEDS: Docusate Sodium 100 MG CAP PO ×2 (07:45→19:42)
[2019-04-01] MEDS: Silver sulfaDIAZINE 1% 25 GM TUBE TP (07:47)
[2019-04-01 08:04] LABS: Platelet Count 76 x1000/uL (130-400)
[2019-04-01 08:05] LABS: Absolute Lymphocyte Count 0.18 k/cumm (1.2-3.4); Absolute Neutrophil Count 4.58 k/cumm (1.2-6.7); Anisocytosis 2+; Diff Comment Manual Differential
[2019-04-01 08:06] LABS: Poikilocytes 1+
--- NOTE | 2019-04-01 08:26 | CMPROGNOTE_ITS ---
Care Management Progress Note S/O: Esequiel was otherwise engaged throughout the day and CM was unable to connect with her. Per MD, her wound is improving since new slurry of hydrocortisone, silvadene, neosporin, and lidocaine was started yesterday. Her diet was advanced to clears today. CM continues to follow. A: 64 year old female admitted to [facility] 03/30/19 for Enteritis, Hyponatremia P: Esequiel had a wound consult and surgical consult with treatment recommendations for radiation felder. She will return home when medically ready, resume treatments through [facility], and follow up with her PCP. She will transport via private vehicle with her , Naif.
[2019-04-01 08:45] LABS: ALT 59 U/L (14-59); AST 47 U/L (15-37); Albumin 1.6 g/dL (3.4-5.0); Alkaline Phosphatase 69 U/L (46-116); Bilirubin, Total 0.5 mg/dL (0.2-1.0); Total Protein 4.3 g/dL (6.4-8.2)
[2019-04-01 11:00] VITALS: BP 98/54; PULSE 77; RESP 17; TEMP 36.8; O2SAT 99
--- NOTE | 2019-04-01 11:27 | DI.RAD_ITS ---
EXAM: XR ABDOMEN FLAT UPRIGHT INDICATION: follow up potential obstruction. COMPARISON: XR ABDOMEN FLAT UPRIGHT from 03/31/2019 TECHNIQUE: 2D digital imaging was performed. FINDINGS: When compared with the previous examination of 03/31, there has been an overall decrease in the quant ity of gas and fluid in the mid small bowel. There is no evidence of free air. Right upper quadrant clips attest to a cholecystectomy. There is no evidence of gross organomegaly or a localized intra-a bdominal or pelvic mass.
--- NOTE | 2019-04-01 12:11 | DI.VRAD_ITS ---
PROCEDURE INFORMATION: Exam: XR Abdomen, 2 Views Exam date and time: 04/01/2019 8:30 AM Clinical history: 64 years old, female; Condition or disease; Other: Follow up obstruction TECHNIQUE: Imaging protocol: XR of the abdomen. Frontal supine and upright views of the abdomen. Views: 2 Views. COMPARISON: CR XR ABDOMEN FLAT UPRIGHT 03/31/2019 4:41 PM FINDINGS: Gastrointestinal tract: Decreased dilation of the small bowel loops. Now mostly fluid fills the right colon. Small stairstep air-fluid levels in the right colon more consistent with a diarrheal process than obstruction. Dynamic bowel gas pattern with passage of stool and gas into the left and distal colon. Intraperitoneal space: No free air under the diaphragm. No evidence of bowel perforation. Surgical clips in the right upper quadrant and left pelvis. Bones/joints: Unremarkable for age. IMPRESSION: Decreased dilation of the small bowel with bowel gas pattern more consistent with enteritis/diarrheal process than obstruction. Dictated and Authenticated by: Soraya Connell MD. Ordering:SAUL Odonnell MD
[2019-04-01] MEDS: levoFLOXacin 750 MG/150 ML BAG 100 MG IVPB (14:53)
--- NOTE | 2019-04-01 14:57 | W.PM.PROGNOT ---
Date of Service Date of service: 04/01/19 Time of Service: 14:58 Assessment and Plan Assessment and plan (1) Enteritis: Status: Acute Assessment and plan: No fever since 23:28 yesterday. Clinically improved. Diet advanced to clears. If tolerates, would advance to soft bland diet in am. Continue empiric abx. Enteritis due to chemo is also possible. (2) Hyponatremia: Status: Acute Assessment and plan: Resolved with normal saline. Continue IVF. (3) Anal cancer: Status: Acute Assessment and plan: Currently following with [facility] [place]. Has a radiation burn, but this looks better today since initiation of the wound care with hydrocortisone, silvadene, neosporin, and lidocaine. No surgical intervention is indicated, per general surgery. (4) CAD (coronary artery disease): Status: Chronic Assessment and plan: H/o STEMI at [facility]. Continue asa/statin/prn nitroglycerin. Continue to hold losartan. (5) Dyslipidemia: Status: Acute Assessment and plan: Continue statin therapy. (6) Restless leg syndrome: Status: Acute Assessment and plan: Continue home regimen of ropinirole. (7) DVT prophylaxis: Status: Acute Assessment and plan: Hold lovenox due to thrombocytopenia. (8) Advanced directives, counseling/discussion: Status: Acute Assessment and plan: Full code. Palliative care referral as outpatient. Subjective Subjective Interval history since last seen: Feels a lot better today. Denies dizziness, chest pain, shortness of breath. No nausea since this am. Abdominal pain is better. Has been able to pass flatus today. No BM. Was initiated on clears after being NPO overnight - tolerating so far. She feels like she might be able to go home in a day or two. Exam Narrative Exam Narrative: General: Very pleasant, middle-aged female, A&Ox3, looks better today HEENT: EOMI, MMM Heart: RRR, no m/r/g Lungs: CTAB GI: abdomen is soft, not distended today, no tenderness to palpation Extremities: no e/c/c BLE's Objective Objective Clinical Data: Abnormal lab results 03/31/19 04/01/19 04/01/19 Range/Units 19:56 06:40 06:40 RBC 2.93 L (4.00-5.20) m/cumm Hgb 9.3 L (12.0-15.5) g/dL Hct 26.8 L (36.0-46.0) % RDW 17.0 H (11.7-14.6) % Plt Count 76 L (130-400) x1000/uL Absolute Lymphocytes 0.18 L (1.2-3.4) k/cumm Absolute Monocytes 1.00 H (0.11-0.7) k/cumm Sodium 135 L (136-145) mmol/L BUN 5 L (7-18) mg/dL Calcium 7.1 L (8.5-10.1) mg/dL AST 47 H (15-37) U/L Total Protein 4.3 L (6.4-8.2) g/dL Albumin 1.6 L (3.4-5.0) g/dL Urine Protein 100 H (Negative) mg/dL Urine Blood Large H (Negative) Urine RBC >50 H (0-2) Vital Signs Temperature 36.8 C 04/01/19 11:00 Temperature Source Tympanic 04/01/19 11:00 Pulse 77 04/01/19 11:00 Pulse Rhythm Regular 04/01/19 10:43 Pulse 82 03/30/19 12:20 Respiratory Rate 17 04/01/19 11:00 Respiratory Effort 04/01/19 10:43 Respiratory Depth Normal 04/01/19 10:43 Respiratory Pattern Normal 04/01/19 10:43 Blood Pressure 98/54 L 04/01/19 11:00 Blood Pressure Mean 56 03/30/19 14:30 Blood Pressure Position Supine 03/30/19 10:15 Pulse Oximetry 99 04/01/19 11:00 Oxygen Delivery Method Room Air 04/01/19 11:00 Oxygen Flow Rate 0 04/01/19 11:00 Pain Level 7 04/01/19 11:45 Comment 03/31/19 23:28 Intake & Output 03/31/19 04/01/19 04/01/19 23:59 11:59 23:59 Intake Total 1800 / 3301.0 150.5 / 160.5 10 160.5 Output Total 2034 / 2784 3033 / 3033 Balance -234 / 517.0 -2882.5 / -2872.5 10 / -2872.5 Intake: IV 1350 / 2551.0 150.5 / 160.5 10 / 160.5 Oral 450 / 750 Output: Urine 1999 / 2750 2950 / 2950 Post Void Residual 34 / 34 83 / 83 Other: Urine Color Dark Lindsey Dark Lindsey Urine Appearance Cloudy Clear Urine Odor Normal Comment Sample sent to lab supine Voiding Methods Toilet Toilet Laboratory Results WBC 5.87 k/cumm (4.4-10.8) D 04/01/19 06:40 RBC 2.93 m/cumm (4.00-5.20) L 04/01/19 06:40 Hgb 9.3 g/dL (12.0-15.5) L 04/01/19 06:40 Hct 26.8 % (36.0-46.0) L 04/01/19 06:40 MCV 91.5 fL (80-95) 04/01/19 06:40 MCH 31.7 pg (27.0-33.0) 04/01/19 06:40 MCHC 34.7 g/dL (32.0-36.0) 04/01/19 06:40 RDW 17.0 % (11.7-14.6) H 04/01/19 06:40 Plt Count 76 x1000/uL (130-400) L 04/01/19 06:40 MPV 9.1 fL (8.0-11.0) 04/01/19 06:40 Immature Gran % See Differential 04/01/19 06:40 Neutrophils % 70.0 04/01/19 06:40 Band Neutrophils % 8.0 % 04/01/19 06:40 Lymphocytes % 3.0 04/01/19 06:40 Monocytes % 17.0 04/01/19 06:40 Eosinophils % 0.0 04/01/19 06:40 Basophils % 0.0 04/01/19 06:40 Metamyelocytes % 2.0 % 04/01/19 06:40 Absolute Neutrophils 4.58 k/cumm (1.2-6.7) 04/01/19 06:40 Absolute Lymphocytes 0.18 k/cumm (1.2-3.4) L 04/01/19 06:40 Absolute Monocytes 1.00 k/cumm (0.11-0.7) H 04/01/19 06:40 Absolute Eosinophils 0.00 k/cumm (0.0-0.7) 04/01/19 06:40 Absolute Basophils 0.00 k/cumm (0.0-0.2) 04/01/19 06:40 Differential Comment Manual differential 04/01/19 06:40 RBC Morphology See below 04/01/19 06:40 Poikilocytosis 1+ 04/01/19 06:40 Anisocytosis 2+ 04/01/19 06:40 Sodium 135 mmol/L (136-145) L 04/01/19 06:40 Potassium 3.5 mmol/L (3.5-5.1) 04/01/19 06:40 Chloride 103 mmol/L (98-107) 04/01/19 06:40 Carbon Dioxide 24.9 mmol/L (21.0-32.0) 04/01/19 06:40 Anion Gap 7.1 mmol/L (3-11) 04/01/19 06:40 BUN 5 mg/dL (7-18) L 04/01/19 06:40 Creatinine 0.68 mg/dL (0.55-1.02) 04/01/19 06:40 Estimated GFR/1.73 m2 >= 60.00 (mL/min/1.73m2) 04/01/19 06:40 Glucose 93 mg/dL (70-100) D 04/01/19 06:40 Lactate 1.2 mmol/L (0.6-1.4) 03/31/19 15:50 Calcium 7.1 mg/dL (8.5-10.1) L 04/01/19 06:40 Magnesium 1.9 mg/dL (1.8-2.4) 04/01/19 06:40 Total Bilirubin 0.5 mg/dL (0.2-1.0) 04/01/19 06:40 Conjugated Bilirubin 0.20 mg/dL (0.00-0.20) 04/01/19 06:40 AST 47 U/L (15-37) H 04/01/19 06:40 ALT 59 U/L (14-59) 04/01/19 06:40 Alkaline Phosphatase 69 U/L (46-116) 04/01/19 06:40 Troponin I < 0.05 ng/mL (0.00-0.06) 03/30/19 13:40 Total Protein 4.3 g/dL (6.4-8.2) L 04/01/19 06:40 Albumin 1.6 g/dL (3.4-5.0) L 04/01/19 06:40 Lipase 27 U/L (73-393) L 03/30/19 10:50 Urine Color Brown (Yellow) 03/31/19 19:56 Urine Clarity Sl cloudy (Clear) 03/31/19 19:56 Urine pH 6.0 (5-8) 03/31/19 19:56 Ur Specific [place] 1.025 (1.005-1.025) 03/31/19 19:56 Urine Protein 100 mg/dL (Negative) H 03/31/19 19:56 Urine Ketones Negative mg/dL (Negative) 03/31/19 19:56 Urine Blood Large (Negative) H 03/31/19 19:56 Urine Nitrite Negative (Negative) 03/31/19 19:56 Urine Bilirubin Negative (Negative) 03/31/19 19:56 Urine Urobilinogen 0.2 EU/dL (Up TO 0.2) 03/31/19 19:56 Ur Leukocyte Esterase Negative (Negative) 03/31/19 19:56 Urine RBC >50 (0-2) H 03/31/19 19:56 Urine WBC 10-20 HPF (0-5) 03/31/19 19:56 Ur Epithelial Cells Negative HPF (Negative) 03/31/19 19:56 Urine Crystals Negative HPF (Negative) 03/31/19 19:56 Urine Bacteria Moderate HPF (Negative) 03/31/19 19:56 Urine Casts 3-5 fine granular LPF (Negative) 03/31/19 19:56 Urine Mucus Negative (Negative) 03/31/19 19:56 Ur Culture Indicated? C&s done as ordered 03/31/19 19:56 Urine Glucose Negative mg/dL (Negative) 03/31/19 19:56
[2019-04-01 16:09] VITALS: BP 105/65; PULSE 95; RESP 18; TEMP 36.6; O2SAT 98
[2019-04-01] MEDS: Rosuvastatin 10 MG TAB 40 MG PO (19:42)
[2019-04-01] MEDS: Normal Saline Flush 10 ML SYR IVP (19:44)
[2019-04-01] MEDS: Pantoprazole 40 MG VIAL IVP (19:44)
[2019-04-01] MEDS: rOPINIRole 0.5 MG TAB 2 MG PO (23:06)
[2019-04-02 00:24] VITALS: BP 88/48; PULSE 74; RESP 18; TEMP 36.9; O2SAT 97
[2019-04-02] MEDS: metroNIDAZOLE 500 MG/100 ML BAG 100 MG IVPB ×2 (04:01→13:11)
[2019-04-02 06:58] LABS: Abs Immature Grans 0.09 k/cumm (0.0-0.09); Absolute Lymphocyte Count 0.19 k/cumm (1.2-3.4); HGB 11.1 g/dL (12.0-15.5); Mean Corp. HGB Concentration 35.8 g/dL (32.0-36.0); Mean Corpuscular Hemoglobin 32.4 pg (27.0-33.0); Mean Corpuscular Volume 90.4 fL (80-95); Mean Platelet Volume 9.2 fL (8.0-11.0); RBC 3.43 m/cumm (4.00-5.20); RBC Distribution Width 17.7 % (11.7-14.6); White Blood Cell Count 6.22 k/cumm (4.4-10.8)
[2019-04-02 07:00] LABS: Anion Gap 7.7 mmol/L (3-11); BUN 5 mg/dL (7-18); CO2 25.3 mmol/L (21.0-32.0); CREATININE 0.71 mg/dL (0.55-1.02); Calcium 7.4 mg/dL (8.5-10.1); Chloride 105 mmol/L (98-107); Glucose 106 mg/dL (70-100); Sodium 138 mmol/L (136-145)
[2019-04-02 07:09] LABS: Potassium 2.9 mmol/L (3.5-5.1)
[2019-04-02 07:20] VITALS: BP 105/48; PULSE 80; RESP 16; TEMP 36.8; O2SAT 99
[2019-04-02 07:58] LABS: Platelet Count 86 x1000/uL (130-400)
[2019-04-02 08:11] LABS: Absolute Monocyte Count 0.93 k/cumm (0.11-0.7); Absolute Neutrophil Count 5.04 k/cumm (1.2-6.7)
[2019-04-02 08:12] LABS: Diff Comment Manual Differential
[2019-04-02 08:13] LABS: Anisocytosis 1+; Burr Cells (echinocyte) 2+; Polychromasia Present
[2019-04-02 08:14] LABS: Poikilocytes 2+
[2019-04-02 08:24] LABS: Potassium 2.9 mmol/L (3.5-5.1)
[2019-04-02] MEDS: rOPINIRole 0.5 MG TAB 1 MG PO (09:35)
[2019-04-02] MEDS: Famotidine 20 MG TAB PO (09:35)
[2019-04-02] MEDS: Docusate Sodium 100 MG CAP PO (09:35)
[2019-04-02] MEDS: Potassium Chloride 20 MEQ TABCR 40 MEQ PO ×2 (09:35→16:07)
[2019-04-02] MEDS: Oxybutynin-CR 5 MG TABCR PO (09:36)
[2019-04-02] MEDS: POTASSIUM CHLORIDE 20 MEQ/100 ML BAG 50 MEQ IVPB (09:36)
[2019-04-02] MEDS: Polyethylene Glycol 3350 17 GM PACKET PO (09:36)
[2019-04-02] MEDS: Aspirin 81 MG CHEW PO (09:36)
[2019-04-02 11:38] LABS: Campylobacter PCR SEE COMMENTS; Salmonella PCR SEE COMMENTS; Shiga Toxin PCR SEE COMMENTS; Shigella/Enteroinvasive Ecoli SEE COMMENTS
--- NOTE | 2019-04-02 14:27 | PDOC.CMPRO ---
- If Service Date Differs Date of service: 04/02/19 Time of Service: 14:27 Care Management Progress Note S/O: Esequiel was sitting up in her bed when CM met with her. She was pleasant in interactions and was upfront with her needs. She stated that she does not need any services at this time, and that she is safe and comfortable at home. She reported that she is still uncomfortable but feeling better than she was upon admission. CM will follow. A: 64 year old female admitted to [facility] 03/30/19 for Enteritis, Hyponatremia P: Esequiel will return home when medically ready, resume treatments through [facility], and follow up with her PCP. She will transport via private vehicle with her , Naif.
[2019-04-02] MEDS: levoFLOXacin 750 MG/150 ML BAG 100 MG IVPB (14:28)
[2019-04-02 15:56] LABS: Anion Gap 5.7 mmol/L (3-11); BUN 6 mg/dL (7-18); CO2 27.3 mmol/L (21.0-32.0); CREATININE 0.72 mg/dL (0.55-1.02); Calcium 7.3 mg/dL (8.5-10.1); Chloride 104 mmol/L (98-107); Glucose 150 mg/dL (70-100); Potassium 3.2 mmol/L (3.5-5.1); Sodium 137 mmol/L (136-145)
[2019-04-02 16:13] VITALS: BP 100/59; PULSE 80; RESP 16; TEMP 36.9; O2SAT 100
--- NOTE | 2019-04-02 16:14 | W.PM.DS.N ---
Date of service: 04/02/19 Time of Service: 16:15 DS: Diagnosis Discharge Diagnosis (1) Enteritis: Status: Acute Asessment and Plan: Due to chemo vs bacterial (2) Hyponatremia: Status: Acute (3) Anal cancer: Status: Acute (4) CAD (coronary artery disease): Status: Chronic (5) Dyslipidemia: Status: Acute (6) Restless leg syndrome: Status: Acute Discharge Plan Disposition Patient Disposition: HOME Condition: Serious Discharge Details Chief Complaint: Fever Clinical Impression: Enteritis, Acute hypokalemia, Hypocalcemia, Acute hyponatremia, Leukopenia Reason For Visit: ENTERITIS,HYPONATREMIA Admit Date/Time: 03/30/19 13:49 Admit Provider: Jersey Morin Attending Provider: Jersey Morin Primary Care Provider: SOMMER WYNNE ED Provider: Shiraz Leung Hospital Course Hospital Course: Ms Grimaldo is a 64 year old female with anal cancer, on radiation and chemo, as well as h/o CAD, chronic radiation dermatitis, admitted to [facility] on 03/30/19 with enteritis accompanied by fever, presumably due to a bacterial infection, though it could also have been due to chemotherapy. She was also hyponatremic and hypokalemic, both of which corrected with IVF. She responded to bowel rest, IV levofloxacin and metronidazole. She defervesced. Unfortunately, the C. Diff test appears as cancelled in the EMR, so we do not know the resultHer pain is controlled with PO medications. Her hypokalemia on the day of discharge is being treated with oral potassium and should be followed up as outpatient. She is medically stable for discharge home today to complete 5 more days of levofloxacin/metronidazole. She Will need close follow up for her BMP as outpatient. Care for patient as well as preparation of her discharge paperwork on day of discharge took 45 minutes. Home Meds and New Rx's Prescriptions: New potassium chloride 20 mEq tablet extended release 40 meq PO DAILY Qty: 10 RF: 0 metronidazole 500 mg tablet 500 mg PO Q8H Qty: 15 RF: 0 levofloxacin 500 mg tablet 500 mg PO DAILY Qty: 5 RF: 0 ondansetron 4 mg film 4 mg PO Q8H PRN (Reason: nausea and vomiting) Qty: 12 RF: 0 Continued loperamide 2 mg Capsule 2 mg PO 4-6XD PRNRF: 0 polyethylene glycol 3350 [Miralax] 17 gram Powder In Packet 17 g PO DAILY RF: 0 tramadol 50 mg Tablet See Rx Instructions .ROUTE .COMPLEX PRNRF: 0 acetaminophen [Acetaminophen Extra Strength] 500 mg Tablet See Rx Instructions .ROUTE .COMPLEX PRN (Reason: Pain) RF: 0 famotidine 20 mg Tablet 20 mg PO DAILY RF: 0 lorazepam 0.5 mg Tablet See Rx Instructions .ROUTE .COMPLEX PRNRF: 0 losartan 25 mg Tablet 25 mg PO DAILY RF: 0 nitroglycerin [Nitrostat] 0.4 mg Tablet, Sublingual See Rx Instructions .ROUTE .COMPLEX PRNRF: 0 docusate sodium 100 mg Capsule 100 mg PO BID RF: 0 oxybutynin chloride [Ditropan XL] 5 mg Tablet Extended Release 24hr 5 mg PO DAILY RF: 0 aspirin [Aspirin Childrens] 81 mg Tablet,Chewable 81 mg PO DAILY RF: 0 morphine 15 mg Tablet Extended Release 15 mg PO BID RF: 0 hydromorphone 4 mg Tablet See Rx Instructions .ROUTE .COMPLEX PRNRF: 0 morphine 15 mg Tablet See Rx Instructions .ROUTE .COMPLEX PRN (Reason: Pain) RF: 0 rosuvastatin [Crestor] 40 mg Tablet 40 mg PO DAILY RF: 0 ropinirole [Requip XL] 2 mg Tablet Extended Release 24 Hr See Rx Instructions .ROUTE .COMPLEX RF: 0 Brilinta 60 mg Tablet 60 mg PO BID RF: 0 Discontinued fluconazole 100 mg Tablet 100 mg PO PRN PRNRF: 0 capecitabine 500 mg Tablet 1,300 mg PO BID RF: 0 Discharge Instructions Instructions: Potassium Chloride (By mouth), Metronidazole (By mouth), Levofloxacin (By mouth), Enteritis (DC) Additional Instructions: Finish your antibiotics as prescribed. Return to the hospital with any fever, bleeding, chest pain, or shortness of breath. Referrals: SOMMER WYNNE NP [Primary Care Provider] - Activity:: Activity as Tolerated Equipment/Supplies:: No Equipment Needed Diet:: As Tolerated Discharge Orders Discharge Orders: Discharge Order (Routine); Ordered 04/02/19 Ordered By: Belle Vu DS: Summary Status at Discharge Functional status at discharge: independent ambulation Overall status at discharge: patient is back to baseline Mental Status: mental status grossly normal Speech and Movement: speech and movement normal Mood: congruent mood Affect: normal affect Exam Narrative Exam Narrative: General: Very pleasant, middle-aged female, A&Ox3, smiling and comfortably sitting at the edge of the bed HEENT: EOMI, MMM Heart: RRR, no m/r/g Lungs: CTAB GI: abdomen is soft, not distended today, no tenderness to palpation Extremities: no e/c/c BLE's Psych Mental Status: mental status grossly normal Speech and Movement: speech and movement normal Mood: congruent mood Affect: normal affect DS: Data Vitals/I&O Vitals and I&O: Vital Signs Temperature 36.9 C 04/02/19 16:13 Temperature Source Tympanic 04/02/19 16:13 Pulse 80 04/02/19 16:13 Pulse Rhythm Regular 04/02/19 11:05 Pulse 82 03/30/19 12:20 Respiratory Rate 16 04/02/19 16:13 Respiratory Effort 04/02/19 11:05 Respiratory Depth Normal 04/02/19 11:05 Respiratory Pattern Normal 04/02/19 11:05 Blood Pressure 100/59 L 04/02/19 16:13 Blood Pressure Mean 56 03/30/19 14:30 Blood Pressure Position Supine 03/30/19 10:15 Pulse Oximetry 100 04/02/19 16:13 Oxygen Delivery Method Room Air 04/02/19 16:13 Oxygen Flow Rate 0 04/02/19 16:13 Pain Level 4 04/02/19 16:13 Comment 04/02/19 07:20 Intake & Output 04/01/19 04/02/19 04/02/19 23:59 11:59 23:59 Intake Total 2320 / 2470.5 350 / 550 200 / 550 Output Total 1300 / 4333 800 / 800 Balance 1020 / -1862.5 -450 / -250 200 / -250 Intake: IV 1360 / 1510.5 100 / 300 200 / 300 Oral 960 / 960 250 / 250 Output: Urine 1300 / 4250 800 / 800 Other: Urine Color Dark Lindsey Dark Lindsey Brown Brown Urine Appearance Clear Clear Urine Odor Normal Comment patient has been indepandant and has dumped her urine Stool Size Moderate Stool Characteristics Liquid Voiding Methods Toilet Toilet Data Completed and Pending Completed studies during hospitalization [Text1]: CT chest/abdomen/pelvis 03/30/19: 1. Interval decrease in size of left external iliac/inguinal adenopathy since 01/26/2019. 2. No evidence of acute process in the thoracic region. 3. Marked focal small and large bowel wall thickening as described; findings would be consistent with enteritis of uncertain etiology, in a patient with a history of recent radiotherapy and chemotherapy, possible causes would include infectious process, radiation enteritis, or enteritis related to chemotherapeutic regimen. XR flat/upright 03/31/19: Nonspecific mild small bowel dilatation, localized in mid abdomen. Ileus likely, early obstruction excluded. Appropriate follow-up studies requested. XR flat/upright 04/01/19: When compared with the previous examination of 03/31, there has been an overall decrease in the quantity of gas and fluid in the mid small bowel. There is no evidence of free air. Right upper quadrant clips attest to a cholecystectomy. There is no evidence of gross organomegaly or a localized intra-abdominal or pelvic mass. Labs on day of discharge: Labs from last 24 hours 04/02/19 04/02/19 04/02/19 15:33 07:55 06:23 WBC 6.22 RBC 3.43 L Hgb 11.1 L Hct 31.0 L MCV 90.4 MCH 32.4 MCHC 35.8 RDW 17.7 H Plt Count 86 L MPV 9.2 Immature Gran % See Differential Neutrophils % 71.0 Band Neutrophils % 10.0 Lymphocytes % 3.0 Monocytes % 15.0 Eosinophils % 0.0 Basophils % 0.0 Metamyelocytes % 1.0 Absolute Neutrophils 5.04 Absolute Lymphocytes 0.19 L Absolute Monocytes 0.93 H Absolute Eosinophils 0.00 Absolute Basophils 0.00 Differential Comment Manual differential RBC Morphology See below Polychromasia Present Poikilocytosis 2+ Anisocytosis 1+ Myah Cells 2+ Sodium 137 Potassium 3.2 L 2.9 L* Chloride 104 Carbon Dioxide 27.3 Anion Gap 5.7 BUN 6 L Creatinine 0.72 Estimated GFR/1.73 m2 >= 60.00 Glucose 150 H Calcium 7.3 L Magnesium Stool Campylobacter PCR Stool Salmonella PCR Stool Shigella PCR Shiga Toxin (PCR) Path Cons Comment 04/02/19 03/31/19 03/30/19 06:23 Unknown 10:50 WBC RBC Hgb Hct MCV MCH MCHC RDW Plt Count MPV Immature Gran % Neutrophils % Band Neutrophils % Lymphocytes % Monocytes % Eosinophils % Basophils % Metamyelocytes % Absolute Neutrophils Absolute Lymphocytes Absolute Monocytes Absolute Eosinophils Absolute Basophils Differential Comment RBC Morphology Polychromasia Poikilocytosis Anisocytosis [place] Cells Sodium 138 Potassium 2.9 L* Chloride 105 Carbon Dioxide 25.3 Anion Gap 7.7 BUN 5 L Creatinine 0.71 Estimated GFR/1.73 m2 >= 60.00 Glucose 106 H Calcium 7.4 L Magnesium 2.0 Stool Campylobacter PCR See comments Stool Salmonella PCR See comments Stool Shigella PCR See comments Shiga Toxin (PCR) See comments Path Cons Comment See comment Preliminary micro results at discharge 03/30/19 11:16 Blood Culture - Preliminary Blood NO GROWTH 72 HOURS 03/30/19 10:50 Blood Culture - Preliminary Blood NO GROWTH 72 HOURS [facility] Medical History Anal cancer (Acute) CAD (coronary artery disease) (Chronic) Dyslipidemia (Acute) Restless leg syndrome (Acute) Social History (Updated 03/31/19 @ 11:50 by Marla Rogers MD) Smoking/Tobacco Use Status: Never Alcohol Intake: current Alcohol Intake frequency: a few times a week Drug use: Never
== END 2019-04-02 17:15 | disposition home or self-care (01) | DRG 372 ==
LOC: ER 13:34 → MS 15:21
PROVIDERS: Admitting Provider Internal Medicine; Emergency Provider Student in an Organized Health Care Education/Training Program; PCP Registered Nurse; Visit Provider Internal Medicine
DX: A04.9 Bacterial intestinal infection, unspecified (principal); K52.1 Toxic gastroenteritis and colitis; E87.1 Hypo-osmolality and hyponatremia; C21.0 Malignant neoplasm of anus, unspecified; E87.6 Hypokalemia; D72.819 Decreased white blood cell count, unspecified; Z79.899 Other long term (current) drug therapy; E87.8 Other disorders of electrolyte and fluid balance, not elsewhere classified; L59.8 Other specified disorders of the skin and subcutaneous tissue related to radiation; T45.1X5A Adverse effect of antineoplastic and immunosuppressive drugs, initial encounter; I25.10 Atherosclerotic heart disease of native coronary artery without angina pectoris; E78.5 Hyperlipidemia, unspecified; G25.81 Restless legs syndrome
CPT/HCPCS: 36415; 74177; 80048; 80053; 80076; 83690; 87040; 87505; 93005; 96361; 96365; 96366; 96367; 99221; 99223; 99232; 99239; 99253; 99285; J1650; 71260; 74019; 81003; 81015; 82272; 83605; 83630; 83735; 84132; 84295; 84484; 85025; 87086; 87324; 93010; J1956; J3480; J3490

== ENCOUNTER 2019-05-18 01:28 | Outpatient (CLI) | payer OTHER, SELFPAY ==
[2019-05-18 10:02] LABS: ALT 25 U/L (14-59); AST 20 U/L (15-37); Albumin 3.5 g/dL (3.4-5.0); Alkaline Phosphatase 86 U/L (46-116); Anion Gap 7.8 mmol/L (3-11); BUN 11 mg/dL (7-18); Bilirubin, Total 0.3 mg/dL (0.2-1.0); CO2 27.2 mmol/L (21.0-32.0); CREATININE 0.59 mg/dL (0.55-1.02); Calcium 9.4 mg/dL (8.5-10.1); Chloride 106 mmol/L (98-107); Glucose 141 mg/dL (74-106); Potassium 4.3 mmol/L (3.5-5.1); Sodium 141 mmol/L (136-145); Total Protein 7.2 g/dL (6.4-8.2)
[2019-05-18 10:36] LABS: Abs Immature Grans 0.01 k/cumm (0.0-0.09); Absolute Basophil Count 0.03 k/cumm (0.0-0.2); Absolute Eosinophil Count 0.11 k/cumm (0.0-0.7); Absolute Lymphocyte Count 0.44 k/cumm (1.2-3.4); Absolute Monocyte Count 0.64 k/cumm (0.11-0.7); Absolute Neutrophil Count 6.96 k/cumm (1.2-6.7); Basophils % 0.4; Eosinophils % 1.3; HGB 13.6 g/dL (12.0-15.5); Immature Grans % 0.1; Lymphocytes % 5.4; Mean Corpuscular Hemoglobin 35.7 pg (27.0-33.0); Monocytes % 7.8; Platelet Count 260 x1000/uL (130-400); RBC 3.81 m/cumm (4.00-5.20); White Blood Cell Count 8.19 k/cumm (4.4-10.8)
[2019-05-18] MEDS: Omnipaque 350 MG/ML 100 ML BTL IJ (11:09)
--- NOTE | 2019-05-18 11:22 | DI.CT_ITS ---
EXAM: CT CHEST/ABD/PEL W CLINICAL HISTORY: ANAL CANCER C21.0, RESTAGING TECHNIQUE: Post IV and oral contrast. COMPARISON: [id number] from 01/26/2019 CT CHEST/ABD/PEL W from 03/30/2019 FINDINGS: Chest CT: The heart size is normal. The lungs are clear. No pulmonary nodules, adenopathy, pleural or pericardial effusions are seen. Abdomen/pelvic CT: Patient is status post cholecystectomy. There is a stable tiny liver cyst. There is stable mild extrahepatic biliary dilatation. The spleen, pancreas and adrenals are unremarkable. There are bilateral renal cysts. Patient is status post hysterectomy. Bladder is nearly empty and shows a question of wall thickening. There is some thickening of the rectosigmoid. There is marked improvement when compared with the previous exam. Sigmoid diverticulosis is noted. No adenopathy i s seen. There is no evidence of ascites. Atherosclerotic changes are seen in the aorta and iliac ar teries. There are no suspicious bony abnormalities. IMPRESSION: No evidence of metastatic disease in the chest. Mild wall thickening of the rectosigmoid colon and u rinary bladder. This has significantly improved when compared with the previous exam. No adenopathy is seen.
== END 2019-05-18 01:48 ==
PROVIDERS: PCP Registered Nurse; Visit Provider Internal Medicine Hematology & Oncology
DX: C21.0 Malignant neoplasm of anus, unspecified (principal); Z12.89 Encounter for screening for malignant neoplasm of other sites; K76.89 Other specified diseases of liver; K63.89 Other specified diseases of intestine; N32.89 Other specified disorders of bladder; K57.30 Diverticulosis of large intestine without perforation or abscess without bleeding
CPT/HCPCS: 74177; 80053; 71260; 85025; J3490

== ENCOUNTER 2019-09-21 11:33 | Outpatient (REF) | payer OTHER, SELFPAY ==
[2019-09-21 21:13] LABS: FREE T4 0.99 ng/dL (0.76-1.46); TSH 2.18 uIU/mL (0.36-3.74)
[2019-09-24 04:44] LABS: T3, Total 181 ng/dL (97-169)
== END 2019-09-21 11:53 ==
LOC: NCHCN 11:33
PROVIDERS: PCP Registered Nurse; Visit Provider Registered Nurse
DX: R94.6 Abnormal results of thyroid function studies (principal)
CPT/HCPCS: 84439; 84443; 84480

== ENCOUNTER 2022-06-17 13:21 | Outpatient (REF) | payer OTHER, SELFPAY ==
[2022-06-17 15:37] LABS: PROTEIN 42.8 mg/dL; Prot/Crea Ur Ratio 0.34
[2022-06-17 15:45] LABS: Microalb ug/mg Crea 37.5 ug/mg Cr
== END 2022-06-17 13:22 | disposition home or self-care (01) ==
LOC: NCHCN 13:21
PROVIDERS: PCP Registered Nurse; Visit Provider Registered Nurse
DX: E11.9 Type 2 diabetes mellitus without complications (principal)
CPT/HCPCS: 82043; 82565; 82570; 84156

== ENCOUNTER 2023-06-14 19:24 | Outpatient (REF) | payer MEDICARE, SELFPAY ==
[2023-06-14 21:21] LABS: COMMENT (LAB VIEW ONLY) < 13.00 mg/dL
== END 2023-06-14 19:25 | disposition home or self-care (01) ==
LOC: NCHCN 19:24
PROVIDERS: PCP Registered Nurse; Visit Provider Family Medicine
DX: E11.9 Type 2 diabetes mellitus without complications (principal)
CPT/HCPCS: 82043; 82565; 82570

== ENCOUNTER 2024-05-22 16:22 | Outpatient (REF) | payer MEDICARE, SELFPAY ==
[2024-05-22 15:03] LABS: COMMENT (LAB VIEW ONLY) 161.14 mg/dL; Microalb ug/mg Crea 25.7 ug/mg Cr
== END 2024-05-22 16:23 | disposition home or self-care (01) ==
LOC: NCHCN 16:22
PROVIDERS: PCP Registered Nurse; Visit Provider Family Medicine
DX: E11.9 Type 2 diabetes mellitus without complications (principal)
CPT/HCPCS: 82043; 82570

== ENCOUNTER 2025-05-16 20:46 | Outpatient (REF) | payer MEDICARE, SELFPAY ==
[2025-05-16 21:30] LABS: Microalb ug/mg Crea 45.1 ug/mg Cr
== END 2025-05-16 20:47 | disposition home or self-care (01) ==
LOC: NCHCN 20:46
PROVIDERS: PCP Registered Nurse; Visit Provider Family Medicine
DX: E11.9 Type 2 diabetes mellitus without complications (principal)
CPT/HCPCS: 82043; 82570